=== PATIENT | male | born 1965 | race Caucasian/White ===

== ENCOUNTER 2018-03-09 17:21 | Emergency (ER) | payer MEDICARE, OTHER ==
[2018-03-09] MEDS: CLINDAMYCIN 900 MG/D5W (PMX) 50 ML IVPB (22:32)
[2018-03-09 22:44] LABS: ADD MAN DIFF? NO
[2018-03-09 22:48] LABS: BASOPHIL # 0.1 10^3/ul (0.0-0.1); BASOPHILS % 0.5 % (0.0-2.0); EOSINOPHILS # 0.1 10^3/ul (0.0-0.5); HEMATOCRIT 34.3 % (42.0-52.0); HEMOGLOBIN 11.4 g/dl (14.0-18.0); LYMPHOCYTES # 0.9 10^3/ul (0.8-2.9); LYMPHOCYTES % 7.3 % (15.0-51.0); MEAN CORPUSCULAR HEMOGLOBIN 31.3 pg (29.0-33.0); MEAN CORPUSCULAR HGB CONC 33.2 g/dl (32.0-37.0); MEAN CORPUSCULAR VOLUME 94.2 fl (82.0-101.0); MEAN PLATELET VOLUME 10.1 fl (7.4-10.4); MONOCYTES % 8.1 % (0.0-11.0); NEUTROPHIL # 9.9 10^3/ul (1.6-7.5); NEUTROPHILS % 82.3 % (39.0-77.0); PLATELET COUNT 229 10^3/UL (140-415); RED BLOOD COUNT 3.64 10^6/ul (4.70-6.10); RED CELL DISTRIBUTION WIDTH 14.2 % (11.5-14.5)
== END 2018-03-10 00:34 | disposition home or self-care (01) ==
LOC: E/R 03-10 00:34
DX: E11.621 Type 2 diabetes mellitus with foot ulcer (principal); L97.529 Non-pressure chronic ulcer of other part of left foot with unspecified severity; I25.10 Atherosclerotic heart disease of native coronary artery without angina pectoris; L03.116 Cellulitis of left lower limb; Z95.1 Presence of aortocoronary bypass graft; Z79.4 Long term (current) use of insulin; Z79.82 Long term (current) use of aspirin
CPT/HCPCS: 73630; 85025; 96374; 99284-25

== ENCOUNTER → 2018-10-16 | Outpatient (CLI) | payer MEDICARE, OTHER | END | disposition home or self-care (01) | LOC: RAD 11:33 | DX: M79.642 Pain in left hand (principal); M79.641 Pain in right hand ==

== ENCOUNTER 2018-10-17 12:21 | Inpatient (IN) | payer MEDICARE, OTHER ==
[2018-10-17] MEDS ORDERED: ACETAMINOPHEN 325 MG TAB PO ×2 (17:00→21:00)
[2018-10-17] MEDS ORDERED: ONDANSETRON 4 MG INJ IV (17:00)
[2018-10-17 17:12] LABS: ADD MAN DIFF? NO
[2018-10-17 17:15] LABS: WHITE BLOOD COUNT 6.2 10^3/ul (4.8-10.8)
[2018-10-17 17:15] LABS: BASOPHILS % 0.6 % (0.0-2.0); EOSINOPHILS # 0.2 10^3/ul (0.0-0.5); EOSINOPHILS % 3.6 % (0.0-7.0); HEMOGLOBIN 11.1 g/dl (14.0-18.0); LYMPHOCYTES % 16.5 % (15.0-51.0); MEAN CORPUSCULAR HEMOGLOBIN 31.9 pg (29.0-33.0); MEAN CORPUSCULAR HGB CONC 33.6 g/dl (32.0-37.0); MEAN CORPUSCULAR VOLUME 94.8 fl (82.0-101.0); MEAN PLATELET VOLUME 10.2 fl (7.4-10.4); MONOCYTE # 0.6 10^3/ul (0.3-0.9); NEUTROPHIL # 4.3 10^3/ul (1.6-7.5); NEUTROPHILS % 68.8 % (39.0-77.0); PLATELET COUNT 137 10^3/UL (140-415); RED BLOOD COUNT 3.48 10^6/ul (4.70-6.10); RED CELL DISTRIBUTION WIDTH 13.2 % (11.5-14.5)
[2018-10-17 17:33] LABS: ALANINE AMINOTRANSFERASE 30 IU/L (13-69); ALBUMIN 3.8 g/dl (3.3-4.9); ALBUMIN/GLOBULIN RATIO 1.18; ALKALINE PHOSPHATASE 121 IU/L (42-121); ANION GAP 13 (5-13); ASPARTATE AMINO TRANSFERASE 31 IU/L (15-46); BILIRUBIN,INDIRECT 0.3 mg/dl (0-1.1); BILIRUBIN,TOTAL 0.3 mg/dl (0.2-1.3); BLOOD UREA NITROGEN 62 mg/dl (7-20); CALCIUM 8.7 mg/dl (8.4-10.2); CARBON DIOXIDE 31 mmol/L (21-31); CHLORIDE 94 mmol/L (97-110); CREATININE 9.05 mg/dl (0.61-1.24); Estimated GFR 6 mL/min (>60); GLUCOSE 154 mg/dl (70-220); POTASSIUM 5.2 mmol/L (3.5-5.1); SODIUM 138 mmol/L (135-144)
[2018-10-17] MEDS: VANCOMYCIN 1 GM (PMX) 250 ML IVPB (17:43)
[2018-10-17] MEDS ORDERED: VANCOMYCIN IV PER PHARMACY XX (21:00)
[2018-10-17] MEDS ORDERED: HYDROCODONE/APAP (5/325) TAB PO (21:00)
[2018-10-17] MEDS ORDERED: GLUCOSE GEL 15 GRAM TUBE BUCCAL (23:00)
[2018-10-17] MEDS ORDERED: GLUCAGON 1 MG INJ IM (23:00)
[2018-10-17] MEDS ORDERED: DEXTROSE 50% 50 ML SYRINGE IV ×2 (23:00)
[2018-10-17] MEDS ORDERED: GLUCOSE GEL 15 GRAM TUBE PO ×2 (23:00)
[2018-10-17] MEDS: PRAMIPEXOLE 0.25 MG TAB PO (23:37)
[2018-10-17] MEDS: CEFEPIME 1GM/50 ML (PMX) 50 ML IVPB (23:38)
[2018-10-17] MEDS: INSULIN DETEMIR [LEVEMIR] (100 UNITS/ML) SYG SC (23:43)
[2018-10-17] MEDS: INSULIN ASPART [NOVOLOG] 3 ML PEN SC (23:44)
[2018-10-18] MEDS: VANCOMYCIN 500MG/NS (PMX) 100 ML IVPB (00:17)
[2018-10-18 05:56] LABS: ADD MAN DIFF? NO
[2018-10-18 06:00] LABS: WHITE BLOOD COUNT 5.3 10^3/ul (4.8-10.8)
[2018-10-18 06:00] LABS: BASOPHILS % 0.8 % (0.0-2.0); EOSINOPHILS # 0.2 10^3/ul (0.0-0.5); EOSINOPHILS % 4.4 % (0.0-7.0); HEMATOCRIT 31.4 % (42.0-52.0); HEMOGLOBIN 10.6 g/dl (14.0-18.0); LYMPHOCYTES # 1.1 10^3/ul (0.8-2.9); LYMPHOCYTES % 20.7 % (15.0-51.0); MEAN CORPUSCULAR HEMOGLOBIN 31.7 pg (29.0-33.0); MEAN CORPUSCULAR HGB CONC 33.8 g/dl (32.0-37.0); MEAN PLATELET VOLUME 10.9 fl (7.4-10.4); MONOCYTE # 0.6 10^3/ul (0.3-0.9); MONOCYTES % 10.4 % (0.0-11.0); NEUTROPHIL # 3.3 10^3/ul (1.6-7.5); NEUTROPHILS % 63.3 % (39.0-77.0); PLATELET COUNT 145 10^3/UL (140-415); RED BLOOD COUNT 3.34 10^6/ul (4.70-6.10); RED CELL DISTRIBUTION WIDTH 13.2 % (11.5-14.5)
[2018-10-18 06:11] LABS: HEMOGLOBIN A1C 9.5 % (0-5.9)
[2018-10-18 06:18] LABS: CHOL/HDL RATIO 6.1 RATIO; HDL CHOLESTEROL 27 mg/dl (28-71); LDL CHOLESTEROL,CALCULATED 103 mg/dl; TRIGLYCERIDES 178 mg/dl (0-149)
[2018-10-18 06:18] LABS: CHOLESTEROL 166 mg/dl (100-200)
[2018-10-18] MEDS: INSULIN ASPART [NOVOLOG] 3 ML PEN SC ×7 (08:00→21:45)
[2018-10-18] MEDS: CALCIUM ACETATE 667 MG CAP PO ×3 (08:10→17:28)
[2018-10-18] MEDS: ASPIRIN (EC) 81 MG TAB PO (08:11)
[2018-10-18] MEDS: MULTIVIT/CA CARB/B CMPLX/FA TAB PO (08:12)
[2018-10-18] MEDS: PREGABALIN 100 MG CAP PO (08:12)
[2018-10-18 19:22] LABS: HIV 1&2 ANTIBODY NEGATIVE (NEGATIVE)
[2018-10-18 19:28] LABS: ERYTHROCYTE SEDIMENTATION RATE 50 mm/Hr (0-20)
[2018-10-18] MEDS: PRAMIPEXOLE 0.25 MG TAB PO (21:40)
[2018-10-18] MEDS: LIDOCAINE 2% (MDV) 20 ML INJ SC (22:59)
[2018-10-18 23:11] LABS: HEPATITIS B SURFACE ANTIGEN NEGATIVE (NEGATIVE)
[2018-10-18 23:30] LABS: HEPATITIS B SURFACE ANTIBODY NEGATIVE (NEGATIVE)
[2018-10-19] MEDS: CEFEPIME 1GM/50 ML (PMX) 50 ML IVPB (03:29)
[2018-10-19] MEDS: INSULIN DETEMIR [LEVEMIR] (100 UNITS/ML) SYG SC (03:34)
[2018-10-19 06:49] LABS: VANCOMYCIN,RANDOM 11.1 ug/ml
[2018-10-19] MEDS: CALCIUM ACETATE 667 MG CAP PO ×3 (08:07→18:14)
[2018-10-19] MEDS: INSULIN ASPART [NOVOLOG] 3 ML PEN SC ×6 (08:11→18:19)
[2018-10-19] MEDS: ASPIRIN (EC) 81 MG TAB PO (09:21)
[2018-10-19] MEDS: MULTIVIT/CA CARB/B CMPLX/FA TAB PO (09:21)
[2018-10-19] MEDS: PREGABALIN 100 MG CAP PO (09:21)
[2018-10-19] MEDS: VANCOMYCIN 1 GM 250 ML IVPB (12:14)
[2018-10-21 22:11] LABS: CRYPTOCOCCAL ANTIGEN - SOURCE SERUM
[2018-10-22 12:21] LABS: PROCALCITONIN 0.39 ng/mL (<0.10)
== END 2018-10-19 19:35 | disposition home or self-care (01) | DRG 602 ==
LOC: E/R 12:21 → PP2 16:58
PROVIDERS: Internal Medicine
PROC: 5A1D70Z Performance of Urinary Filtration, Intermittent, Less than 6 Hours Per Day (ICD-10-PCS; principal; 2018-10-18)
DX: L03.114 Cellulitis of left upper limb (principal); N18.6 End stage renal disease; I12.0 Hypertensive chronic kidney disease with stage 5 chronic kidney disease or end stage renal disease; L03.113 Cellulitis of right upper limb; I25.10 Atherosclerotic heart disease of native coronary artery without angina pectoris; Z95.1 Presence of aortocoronary bypass graft; E10.22 Type 1 diabetes mellitus with diabetic chronic kidney disease; Z99.2 Dependence on renal dialysis; Z89.411 Acquired absence of right great toe; E78.5 Hyperlipidemia, unspecified; I73.9 Peripheral vascular disease, unspecified; I25.2 Old myocardial infarction; E10.319 Type 1 diabetes mellitus with unspecified diabetic retinopathy without macular edema; E10.42 Type 1 diabetes mellitus with diabetic polyneuropathy; E87.5 Hyperkalemia; S61.204D Unspecified open wound of right ring finger without damage to nail, subsequent encounter; S61.401D Unspecified open wound of right hand, subsequent encounter; S61.402D Unspecified open wound of left hand, subsequent encounter
CPT/HCPCS: 36415; 80053; 80061; 80202; 82962; 83036; 84145; 85025; 85651; 86641; 86703; 86706; 87081; 87340; 90935; 99285-25